=== PATIENT | female | born 1935 | race Caucasian/White ===

== ENCOUNTER 2017-09-25 09:49 | Observation (INO) | payer MEDICARE ==
[~2017-09-25] VITALS: Ht 172.7 cm; Wt 74.0 kg
--- NOTE | ~2017-09-25 | EC ---
PATIENT:RYAN STOREY DATE OF SERVICE: 09/25/17 SEX: F MEDICAL RECORD: [id number] DATE OF : 37 LOCATION:[facility] AGE OF PATIENT: 82 ADMISSION DATE: 09/25/17 REFERRING PHYSICIAN: INTERPRETING PHYSICIAN: ELIF BELL MD ECHOCARDIOGRAM REPORT ECHO CHARGES 4 ECHO COMPLETE Date: 09/25 CLINICAL DIAGNOSIS: TIA ECHOCARDIOGRAPHIC MEASUREMENTS (adult normal given) AC root (d.<3.7cm) 3.6 cm LV Septum d (<1.2 cm> 1.5 cm Valve Excursion 2.1 cm LV Septum (systole) 1.7 cm Left Atria (s.<4.0cm> 3.2 cm LVPW d(<1.2cm) 1.5 cm RV (d.<2.3cm) 3.1 cm LVPW (sytole) 1.7 cm LV diastole(<5.6CM) 3.6 cm MV E-F(>70mm/sec) cm LV systole 2.2 cm LVOT Diameter 1.7 cm MV exc.(>10mm) 1.1 cm Est.ejection fraction (50-75%) % DOPPLER: LVIT cm/sec A 110 cm/sec E 74.0 cm/sec LA cm/sec RVSP 32 mmHg LVOT 114 cm/sec AOP1/2T m/s Asc. Ao 153 cm/sec RVOT 102 cm/sec RA cm/sec PA 124 cm/sec AV Gradient Peak 9.41 mmHg AV Mean 5.15 mmHg AV Area 17 cm MV Gradient Peak 6.02 mmHg MV Mean 2.48 mmHg MV Area cm COMMENTS: Legal Librarian: Damari BERRY [place] Historian: 1 Dr. Bell TAPE# PACS Pericardial Effusion N DATE OF SERVICE: 09/25/2017 PROCEDURE: Echocardiogram. FINDINGS: 1. Left ventricular chamber size is within normal limits. Left ventricular systolic function is normal. Overall ejection fraction estimated at 60%. 2. Left atrium, right atrium, and right ventricular chamber sizes are within normal limits. 3. Valvular structure have normal structure and motion. ECHOCARDIOGRAM REPORT [id number] RYAN STOREY 4. Doppler interrogation only reveals mild tricuspid regurgitation, no other valvular insufficiency or stenosis and pulmonary systolic pressure is estimated at 32 mmHg. 5. No evidence of pericardial effusion or left ventricular thrombus. TRANSINT:[id number] Voice Confirmation ID: [id number] DOCUMENT ID: [id number] ELIF BELL MD at 1006 CC: [id number] DICTATION DATE: 09/26/1756 MANAGER CCU: 09/26/17 [id number] DIS IN 09/26/17 [place] [id number] [place] [id number]
[2017-09-25 10:21] LABS: BASOPHILS 0.3 % (0-2); EOSINOPHILS 2.1 % (0-7); HEMATOCRIT 40.6 % (36.0-48.0); HEMOGLOBIN 13.5 g/dL (12-16); IMMATURE GRANULOCYTES 0.3 % (0-5); MCH 31.8 pg (26.0-34.0); MCHC 33.3 g/dL (31.0-37.0); MCV 95.5 fL (80.0-100.0); MEAN PLATELET VOLUME 9.8 fL (7.4-10.4); MONOCYTES 9.4 % (2-11); NEUTROPHILS 54.9 % (40-80); PLATELET COUNT 173 10x3/uL (130-400); RBC 4.25 10x6/uL (4.00-5.40); RDW 12.4 % (11.5-14.5); WBC 7.1 10x3/uL (4.8-10.8)
[2017-09-25 10:28] LABS: INR 0.99 (0.85-1.17); PROTIME 12.7 SECONDS (11.6-15.0)
[2017-09-25 10:29] LABS: APTT 24.4 SECONDS (22.8-39.4)
[2017-09-25 10:43] LABS: ALBUMIN 3.6 g/dL (3.4-5.0); ANION GAP 13.8 mmol/L (8-16); BILIRUBIN - TOTAL 0.5 mg/dL (0.2-1.3); CALCIUM 9.4 mg/dL (8.5-10.1); CARBON DIOXIDE 24.9 mmol/L (21.0-32.0); CREATININE - SERUM 1.4 mg/dL (0.6-1.3); POTASSIUM - SERUM 4.7 mmol/L (3.5-5.1); PROTEIN - SERUM 7.6 g/dL (6.4-8.2)
[2017-09-25 12:29] LABS: APPEARANCE CLEAR (CLEAR); BILIRUBIN NEGATIVE (NEGATIVE); COLOR YELLOW (YELLOW); GLUCOSE NEGATIVE (NEGATIVE); KETONE NEGATIVE (NEGATIVE); NITRITE NEGATIVE (NEGATIVE); PROTEIN NEGATIVE (NEGATIVE); RED CELLS - URINE 0-5 /hpf (0-5); SPECIFIC GRAVITY 1.015 (1.005-1.020); UROBILINOGEN NORMAL (NORMAL); WHITE CELLS - URINE 0-5 /hpf (0-5)
[2017-09-25 12:30] LABS: BACTERIA FEW /hpf (NONE SEEN); EPITHELIAL CELLS RARE /hpf (0-5); MUCUS <1+ /lpf (NONE SEEN)
[2017-09-25 17:17] LABS: CHOL - HDL RATIO 3.3 ratio (2.3-4.1); LDL-HDL RATIO 1.4 ratio (1.5-3.5)
[2017-09-25 17:55] LABS: CKMB 0.9 U/L (0.0-3.6); CREATINE KINASE 77 UL (21-215)
[2017-09-25] MEDS ORDERED: COLACE100 MG PO (21:23)
[2017-09-25] MEDS ORDERED: VITAMIN D250000 UNIT PO (21:26)
[2017-09-25 21:33] VITALS: BP 183/82
[2017-09-25 23:07] LABS: CKMB 0.6 U/L (0.0-3.6); CREATINE KINASE 61 UL (21-215); TROPONIN-I 0.025 ng/mL (0.000-0.060)
[2017-09-26 00:25] VITALS: BP 178/84
[2017-09-26 04:21] VITALS: BP 174/78
[2017-09-26 04:55] LABS: BASOPHILS 0.2 % (0-2); EOSINOPHILS 3.1 % (0-7); HEMATOCRIT 37.8 % (36.0-48.0); HEMOGLOBIN 12.4 g/dL (12-16); IMMATURE GRANULOCYTES 0.2 % (0-5); MCH 31.2 pg (26.0-34.0); MCHC 32.8 g/dL (31.0-37.0); MCV 95.2 fL (80.0-100.0); MEAN PLATELET VOLUME 10.1 fL (7.4-10.4); MONOCYTES 9.6 % (2-11); NEUTROPHILS 57.9 % (40-80); PLATELET COUNT 155 10x3/uL (130-400); RBC 3.97 10x6/uL (4.00-5.40); RDW 12.4 % (11.5-14.5); WBC 6.5 10x3/uL (4.8-10.8)
[2017-09-26 05:26] LABS: ALBUMIN 3.1 g/dL (3.4-5.0); ALKALINE PHOSPHATASE 42 U/L (46-116); ALT (SGPT) 20 U/L (10-68); CALC OSMOLALITY 286 mosm/kg (275-300); CALCIUM 8.8 mg/dL (8.5-10.1); CARBON DIOXIDE 25.1 mmol/L (21.0-32.0); CHLORIDE - SERUM 109 mmol/L (98-107); CKMB 0.8 U/L (0.0-3.6); CREATINE KINASE 65 UL (21-215); CREATININE - SERUM 1.3 mg/dL (0.6-1.3); GLUCOSE 104 mg/dL (74-106); PROTEIN - SERUM 6.4 g/dL (6.4-8.2); SODIUM 143 mmol/L (136-145); TROPONIN-I 0.016 ng/mL (0.000-0.060); UREA NITROGEN 17 mg/dL (7-18); eGFR NON AFRICAN AMERICAN 42 mL/min (90-120)
[2017-09-26 05:28] LABS: POTASSIUM - SERUM 3.9 mmol/L (3.5-5.1)
[2017-09-26 08:37] VITALS: BP 160/69
[2017-09-26] MEDS ORDERED: ASPIRIN EC81 M1 PO (11:58)
[2017-09-26] MEDS ORDERED: PRAVASTATIN SOD10 MG PO (11:58)
[2017-09-26 12:01] VITALS: BP 132/64
== END 2017-09-26 14:51 | disposition home or self-care (01) ==
LOC: D.ER 09:49 → D.MS 13:08 → OBSVTIME 13:08 → D.EDHOLD 13:08 → D.MS 20:19
PROVIDERS: Family Medicine
DX: G45.9 Transient cerebral ischemic attack, unspecified (principal); I16.0 Hypertensive urgency; I12.9 Hypertensive chronic kidney disease with stage 1 through stage 4 chronic kidney disease, or unspecified chronic kidney disease; N18.9 Chronic kidney disease, unspecified; R47.9 Unspecified speech disturbances